=== PATIENT | male | born 1950 | race Caucasian/White ===

== ENCOUNTER 2023-05-02 08:43 | Outpatient (AMB) | payer MEDICARE, OTHER, SELFPAY ==
--- NOTE | 2023-05-02 09:09 | A.OFFVIS_ITS ---
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 Rivera. Patient has hx of left TKA done with Dr. Rivera on 05/03/22. States he is here for his annual check up. Currently states that he has mild intermittent discomfort in his left knee. He denies any fevers or chills. He does not take any medicines for his discomfort. He continues with his home exercise program. Allergies morphine Allergy (Intermediate, Verified 05/02/23 09:20) Nausea Medication List - Last Reconciled 05/03/23 by Darwin Rivera MD diltiazem HCl ER (Matzim LA) 420 mg PO DAILY fluticasone propionate 110 mcg/actuation (Flovent HFA) 2 puffs inhalation BID losartan 50 mg PO DAILY losartan 100 mg PO DAILY pantoprazole 40 mg PO DAILY rosuvastatin 10 mg PO BEDTIME tadalafil 20 mg PO DAILY Physical Exam Const Other: Well-nourished well-developed very friendly male awake alert and oriented x3 in no acute distress Extrem Other: Bilateral lower extremity examination shows good capillary refill, no skin lesions noted, normal sensation light touch Left knee examination shows that the surgical incision is well healed, no erythema, full active extension and flexion to 120 degrees, his patella tracks well Assessment & Plan Assessment & Plan (1) History of total left knee replacement: Code(s): Z96.652 - Presence of left artificial knee joint Plan: Mr. Gomez continues to do very well after undergoing left total knee replacement surgery on 05/03/2022. He will continue with his home exercise program. He does know to take antibiotics before any dental work. Will contact me prior to his annual follow-up appointment should any questions or concerns arise. Feel free to call me at any time should questions regarding his orthopedic management arise. I spent 22 minutes in reviewing the patient's records, seeing the patient and documenting in the medical record. Coding Level of Care Code Est Pt Level 2 (21465) Diagnoses History of total left knee replacement Z96.652
== END 2023-05-02 09:47 | disposition home or self-care (01) ==
PROVIDERS: Visit Provider Orthopaedic Surgery
DX: Z47.89 Encounter for other orthopedic aftercare (principal); Z96.652 Presence of left artificial knee joint
CPT/HCPCS: 99213

== ENCOUNTER → 2023-05-02 08:43 | Outpatient (BNVA) | payer OTHER, MEDICARE, SELFPAY | PROVIDERS: Visit Provider Orthopaedic Surgery ==

== ENCOUNTER 2023-12-03 08:15 | Outpatient (AMB) | payer MEDICARE, OTHER, SELFPAY ==
--- NOTE | 2023-12-03 08:21 | A.OFFVIS_ITS ---
Vital Signs 12/03/23 08:25 Height 5 ft 9 in Weight 205 lb BMI 30.3 Intake Visit Reasons: OV-Left knee follow up Intake Note: Tray is a 73 year old male who presents today for a follow up of his left knee s/p Left TKA 05/03/22. He reports mild intermittent discomfort in his left knee. He did go for a 4 mi walk several days ago with minimal discomfort. He does not take any medicines for his discomfort. Allergies morphine Allergy (Intermediate, Verified 12/03/23 08:22) Nausea Medication List - Last Reconciled 12/03/23 by Darwin Rivera MD amoxicillin 2,000 mg (4 x 500 mg) PO ONCE diltiazem HCl ER (Matzim LA) 420 mg PO DAILY fluticasone propionate 110 mcg/actuation (Flovent HFA) 2 puffs inhalation BID losartan 50 mg PO DAILY losartan 100 mg PO DAILY pantoprazole 40 mg PO DAILY rosuvastatin 10 mg PO BEDTIME tadalafil 20 mg PO DAILY tamsulosin 0.4 mg PO DAILY [facility] Surgical History (Updated 12/03/23 @ 08:23 by Mary Granados [facility]) History of total left knee replacement (05/03/22) Physical Exam Vital Signs: BMI result Body Mass Index 30.3 Const Other: Well-nourished well-developed very friendly male awake alert and oriented x3 in no acute distress Extrem Other: Bilateral lower extremity examination shows good capillary refill, no skin lesions noted, normal sensation light touch Left knee examination shows that the surgical incision is well healed, no erythema, full active extension and flexion to 120 degrees, his patella tracks well Assessment & Plan Assessment & Plan (1) History of total left knee replacement: Onset Date: 05/03/22 Code(s): Z96.652 - Presence of left artificial knee joint Category: Medical Plan Mr. Gomez continues to do well after undergoing left total knee replacement surgery on 05/03/2022. He will continue with his home exercise program. He does know to take antibiotics before any dental work. He will contact me prior to his annual follow-up appointment should any questions or concerns arise. Feel free to call me at any time should questions regarding his orthopedic management arise. I spent 20 minutes in reviewing the patient's records and imaging studies, seeing the patient and documenting in the medical record. Medications: New amoxicillin Take four caps (2,000 mg) one hour before any dental work. 2,000 mg (4 x 500 mg) PO ONCE 20 caps 2RF Coding Level of Care Code Est Pt Level 2 (59586) Diagnoses History of total left knee replacement Z96.652
[2023-12-03 08:25] VITALS: BMI 30.3
== END 2023-12-03 08:43 | disposition home or self-care (01) ==
PROVIDERS: PCP Family Medicine; Visit Provider Orthopaedic Surgery
DX: Z47.1 Aftercare following joint replacement surgery (principal); Z96.652 Presence of left artificial knee joint
CPT/HCPCS: 99213

== ENCOUNTER → 2023-12-03 08:15 | Outpatient (BNVA) | payer MEDICARE, OTHER, SELFPAY | PROVIDERS: PCP Family Medicine; Visit Provider Orthopaedic Surgery ==

== ENCOUNTER 2024-12-02 08:14 | Outpatient (AMB) | payer OTHER, MEDICARE, SELFPAY ==
--- NOTE | 2024-12-02 08:17 | A.OFFVIS_ITS ---
Intake Visit Reasons: O/V left TKA Dr. Rivera on 05/03/22 Intake Note: Tray is a 74 year old male who presents today for follow up after undergoing a left knee total knee replacement on 05/03/22. Patient is doing well. He reports mild intermittent discomfort in his left knee. He denies any fevers or chills. He continues with his home exercise program. Allergies morphine Allergy (Intermediate, Verified 12/02/24 08:20) Nausea Medication List - Last Reconciled 12/02/24 by Darwin Rivera MD amoxicillin 2,000 mg (4 x 500 mg) PO ONCE diltiazem HCl ER (Matzim LA) 420 mg PO DAILY fluticasone propionate 110 mcg/actuation (Flovent HFA) 2 puffs inhalation BID losartan 50 mg PO DAILY losartan 100 mg PO DAILY pantoprazole 40 mg PO DAILY rosuvastatin 10 mg PO BEDTIME tadalafil 20 mg PO DAILY tamsulosin 0.4 mg PO DAILY [facility] Surgical History (Updated 12/03/23 @ 08:23 by Mary Granados [facility]) History of total left knee replacement (05/03/22) Physical Exam Const Other: Well-nourished well-developed very friendly male awake alert and oriented x3 in no acute distress Extrem Other: Bilateral lower extremity examination shows good capillary refill, no skin lesions noted, normal sensation light touch Left knee examination shows that the surgical incision is well healed, no erythema, full active extension and flexion to 120 degrees, his patella tracks well Assessment & Plan Assessment & Plan (1) Left knee pain: Code(s): M25.562 - Pain in left knee Category: Medical Plan Mr. Gomez continues to do well after undergoing left total knee replacement surgery on 05/03/2022. He will continue with his home exercise program. He does know to take antibiotics before any dental work. He will contact me prior to his annual follow-up appointment should any questions or concerns arise. Feel free to call me at any time should questions regarding his orthopedic management arise. I spent 21 minutes in reviewing the patient's records and imaging studies, seeing the patient and documenting in the medical record. Coding Level of Care Code Est Pt Level 3 (40823) Complex EM visit Add On G2211 Diagnoses Left knee pain M25.562
--- OUTSIDE RECORDS SUMMARY | 2024-12-02 08:27 | XMS_ITS | Clinical Summary ---
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 11/21/2017 Active hydroCHLOROthia zide 12.5 mg tablet Take 12.5 mg by mouth. 11/09/2020 Active rosuvastatin (CRESTOR) 10 mg tablet Take 10 mg by mouth daily. 03/23/2018 Active fluticasone propionate (FLONASE) 50 mcg/actuation nasal spray USE 2 SPRAYS IN EACH NOSTRIL ONCE DAILY 10/26/2017 Active fluticasone HFA (Flovent HFA) 110 mcg/actuation inhaler INHALE 1 PUFF IN THE AM AND 2 PUFFS EACH EVENING *RINSE MOUTH AFTER EACH USE* 09/09/2017 Active aspirin 81 mg EC tablet Take 81 mg by mouth daily. Active Eliquis 5 mg Take 5 mg by mouth. 12/21/2020 Active verapamil SR (CALAN-SR) 120 mg CR tablet Take 120 mg by mouth. 12/21/2020 Active Social History Tobacco Use Types Packs/Day Years Used Date Smoking Tobacco: Never Smokeless Tobacco: Never Sex and Gender Information Value Date Recorded Sex Assigned at Not on file Legal Sex Male 6:04 AM EST Gender Identity Not on file Sexual Orientation Not on file Last Filed Vital Signs Vital Sign Reading Time Taken Comments Blood Pressure 171/80 12/12/2020 3:15 PM EDT Pulse 73 12/12/2020 3:15 PM EDT Temperature - - Respiratory Rate - - Oxygen Saturation - - Inhaled Oxygen Concentration - - Weight 86.2 kg (190 lb) 12/12/2020 3:15 PM EDT Height 177.8 cm (5' 10 ) 12/12/2020 3:15 PM EDT Body Mass Index 27.26 12/12/2020 3:15 PM EDT Plan of Treatment Health Maintenance Due Date Last Done Comments CT Colonography 1950 Colonoscopy 1950 Colorectal Cancer Screening 1950 FIT-DNA (Cologuard) 1950 FIT 1950 FOBT 1950 Flex Sigmoidoscopy - 5y 1950 HIV Screening 1950 Zoster Vaccines (2 of 2) 09/21/2019 07/27/2019 COVID-19 Vaccine ( season) 2024 04/13/2022, 10/30/2021, 10/28/2021, Additional history exists Pneumococcal Vaccine, 50+ Years (3 of 3 - PCV20 or PCV21) 07/02/2024 07/02/2019, 06/10/2014, 04/11/2008 Influenza Vaccine (Season Ended) 2025 02/23/2020 DTaP,Tdap,and Td Vaccines (2 - Td or Tdap) 01/11/2030 01/12/2020 HPV Vaccines Aged Out No longer eligi ble based on patient's age to complete this topic Hepatitis A Vaccines Aged Out No long er eligible based on patient's age to complete this topic Meningococcal Vaccine Aged Out No manolo loren eligible based on patient's age to complete this topic Insurance [facility] MEDICARE PART A & B Care Teams Lacquer Pin Press Operator Relationship Specialty Start Date End Date Kadie Saini MD [address] [place] [address] PCP - General Internal Medicine 11/22/20
== END 2024-12-02 08:37 | disposition home or self-care (01) ==
LOC: HO.HOS 08:14
PROVIDERS: PCP Family Medicine; Visit Provider Orthopaedic Surgery
DX: M25.562 Pain in left knee (principal)
CPT/HCPCS: 99213

== ENCOUNTER 2024-12-02 12:34 | Outpatient (REF) | payer MEDICARE, OTHER, SELFPAY ==
--- OUTSIDE RECORDS SUMMARY | 2024-12-03 13:39 | XMS_ITS | Clinical Summary ---
Author Organization [facility] Address [address] [place] [address] Care Team Providers Care Warrant Clerk Name Role Phone Pcp, No MD Primary [...] patient's age to complete this topic Insurance [facility] MEDICARE PART A & B Care Teams Warrant Clerk Relationship Specialty Start Date End Date Kadie Saini MD [address] [place] [address] PCP - General Internal Medicine 11/22/20
== END 2024-12-02 12:35 | disposition home or self-care (01) ==
LOC: HO.HOSX 12:34
PROVIDERS: Visit Provider Orthopaedic Surgery
DX: Z13.89 Encounter for screening for other disorder (principal)